=== PATIENT | male | born 1945 | race Hispanic/Latino ===

== ENCOUNTER 2022-05-04 13:19 | Emergency (ER) | payer SELFPAY ==
[~2022-05-04] VITALS: Ht 190.5 cm; Wt 97.7 kg
[2022-05-04 13:53] LABS: HEMATOCRIT 39.9 % (39.0-50.0); HEMOGLOBIN 14.1 g/dl (14.0-18.0); IMMATURE GRANULOCYTES 0.2 % (0.0-5.0); MEAN CELL VOLUME 88.5 fL CALC (80.0-100.0); MEAN CORPUSCULAR HGB 31.3 pG CALC (26.0-32.0); MEAN CORPUSCULAR HGB CONC 35.3 g/dL CAL (32.0-36.0); NEUT# 3.24 thou/uL (1.82-7.42); RED BLOOD COUNT 4.51 mill/uL (4.70-6.10); RED CELL DISTRI WIDTH 12.8 % (11.5-15.5)
[2022-05-04 14:05] LABS: INTERNATIONAL NORMALIZED RATIO 1.1 RATIO (0.7-1.3); PROTHROMBIN TIME 10.7 SECONDS (9.0-12.5)
[2022-05-04] MEDS ORDERED: AMLODIPINE BESY1 TA7 (14:08)
[2022-05-04] MEDS ORDERED: ASPIRIN LOW81 M1 PO (14:10)
[2022-05-04 14:11] LABS: ALBUMIN 4.2 g/dL (3.2-5.0); ALKALINE PHOSPHATASE 96 u/l (38-126); ANION GAP 12 (6-22 (CALC)); BILIRUBIN, TOTAL 0.5 mg/dL (0.0-1.4); BUN 15 mg/dL (8-23); BUN/CREATININE RATIO 15 (12-20 (CALC)); CARBON DIOXIDE 26 mmol/l (22-30); CHLORIDE 108 mmol/l (95-108); GFR FOR AFR.AMER. > 60 ML/MIN (>=60 (CALC)); GFR OTHER RACES > 60 ML/MIN (>=60 (CALC)); POTASSIUM 3.8 mmol/l (3.5-5.1); SGOT/AST 28 u/l (19-48); SODIUM 142 mmol/l (137-146); TOTAL PROTEIN 7.2 g/dL (6.3-8.2)
[2022-05-04 14:14] VITALS: BP 125/61
[2022-05-04 14:30] VITALS: BP 131/60
[2022-05-04 15:01] VITALS: BP 147/79
[2022-05-04 15:30] VITALS: BP 131/75
[2022-05-04 15:56] VITALS: BP 132/63
[2022-05-04 16:00] VITALS: BP 126/68
[2022-05-04 17:19] LABS: URINE BILIRUBIN - DIPSTICK NEGATIVE (NEGATIVE); URINE BLOOD DIPSTICK NEGATIVE (NEGATIVE); URINE COLOR YELLOW; URINE GLUCOSE - DIPSTICK NEGATIVE (NEGATIVE); URINE KETONE NEGATIVE (NEGATIVE); URINE LEUK ESTERASE NEGATIVE (NEGATIVE); URINE PH 7.5 (4.5-8.0); URINE PROTEIN - DIPSTICK NEGATIVE (NEG-TRACE); URINE UROBILINOGEN - DIPSTICK 0.2 E.U./dL (0.2)
[2022-05-04 17:20] LABS: URINE NITRITE - DIPSTICK NEGATIVE (Negative)
== END 2022-05-04 16:20 | disposition short-term general hospital (02) | DRG 66 ==
LOC: ED 13:19
PROVIDERS: Nurse Practitioner
DX: I63.231 Cerebral infarction due to unspecified occlusion or stenosis of right carotid arteries (principal); R47.81 Slurred speech; I10 Essential (primary) hypertension; R29.703 NIHSS score 3; R47.1 Dysarthria and anarthria
CPT/HCPCS: Q9967